=== PATIENT | female | born 1995 | race Caucasian/White ===

== ENCOUNTER 2022-07-22 10:59 | Emergency (ER) | payer OTHER ==
[~2022-07-22] VITALS: Ht 162.6 cm; Wt 59.1 kg
[2022-07-22 12:47] LABS: BASO # 0.1 10^3/uL (0.0-0.2); BASO % 0.8 % (0.0-1.0); EOS # 0.1 10^3/uL (0.0-0.5); HEMATOCRIT 41.4 % (36.0-47.0); HEMOGLOBIN 14.3 g/dl (12.0-15.5); LYMPH # 2.1 10^3/uL (1.5-5.0); LYMPH % 34.5 % (24.0-44.0); MEAN CORPUSCULAR HEMOGLOBIN 31.1 pg (27.0-33.0); MEAN CORPUSCULAR HGB CONC 34.5 g/dl (32.0-36.5); MONO # 0.6 10^3/uL (0.0-0.8); MONO % 9.6 % (2.0-8.0); NEUTROPHILS # 3.2 10^3/uL (1.5-8.5); NEUTROPHILS % 52.4 % (36.0-66.0); PLATELET COUNT, AUTOMATED 228 10^3/uL (150-450); WHITE BLOOD COUNT 6.1 10^3/uL (4.0-10.0)
[2022-07-22 13:17] LABS: LIPASE 32 U/L (12-53)
[2022-07-22 13:24] LABS: HCG, SERUM QUALITATIVE NEGATIVE (NEGATIVE)
[2022-07-22 14:03] LABS: ALKALINE PHOSPHATASE 91 U/L (46-116); ALT/SGPT 16 U/L (7.0-40); AST/SGOT 13 U/L (<34); BILIRUBIN,DIRECT 0.2 MG/DL (<0.4); BILIRUBIN,TOTAL 0.8 MG/DL (0.3-1.2); BLOOD UREA NITROGEN 15 MG/DL (9-23); CALCIUM LEVEL 9.3 MG/DL (8.5-10.1); CARBON DIOXIDE LEVEL 30 MMOL/L (20-31); CHLORIDE LEVEL 105 MMOL/L (98-107); CREATININE FOR GFR 0.85 MG/DL (0.55-1.30); GLOMERULAR FILTRATION RATE > 60.0 (>60); GLUCOSE, FASTING 80 MG/DL (60-100); POTASSIUM SERUM 4.2 MMOL/L (3.5-5.1); SODIUM LEVEL 139 MMOL/L (136-145)
[2022-07-22] MEDS ORDERED: NS 1,000 ML IV ONE (14:25)
[2022-07-22 15:19] LABS: CK-MB VALUE MASS < 1.0 NG/ML (<3.6); CPK CREATINE PHOSPHOKINASE 92 U/L (34-145); MB/CK RELATIVE INDEX 1.08 (< OR =4)
[2022-07-22 15:35] LABS: CK-MB VALUE MASS < 1.0 NG/ML (<3.6)
[2022-07-22 15:40] LABS: FREE T4 0.93 NG/DL (0.89-1.76)
[2022-07-22 15:42] LABS: CPK CREATINE PHOSPHOKINASE 66 U/L (34-145); MB/CK RELATIVE INDEX 1.51 (< OR =4)
[2022-07-22 17:28] VITALS: BP 115/80
== END 2022-07-22 17:35 | disposition home or self-care (01) ==
LOC: EDBD 10:59 → M ED 10:59
DX: R53.83 Other fatigue (principal); I44.4 Left anterior fascicular block; F41.9 Anxiety disorder, unspecified; F43.10 Post-traumatic stress disorder, unspecified; H81.4 Vertigo of central origin; K58.9 Irritable bowel syndrome, unspecified

== ENCOUNTER 2022-08-14 15:22 | Emergency (ER) | payer OTHER ==
[~2022-08-14] VITALS: Ht 162.6 cm; Wt 59.1 kg
[2022-08-14 16:01] LABS: BASO % 0.5 % (0.0-1.0); EOS # 0.1 10^3/uL (0.0-0.5); EOS % 2.1 % (0.0-3.0); HEMATOCRIT 36.6 % (36.0-47.0); HEMOGLOBIN 12.7 g/dl (12.0-15.5); LYMPH # 1.8 10^3/uL (1.5-5.0); LYMPH % 31.8 % (24.0-44.0); MEAN CORPUSCULAR HGB CONC 34.7 g/dl (32.0-36.5); MEAN CORPUSCULAR VOLUME 89.3 fl (80.0-96.0); MONO # 0.5 10^3/uL (0.0-0.8); NEUTROPHILS # 3.3 10^3/uL (1.5-8.5); NEUTROPHILS % 57.3 % (36.0-66.0); PLATELET COUNT, AUTOMATED 190 10^3/uL (150-450); WHITE BLOOD COUNT 5.8 10^3/uL (4.0-10.0)
[2022-08-14 16:28] LABS: CK-MB VALUE MASS 1.3 NG/ML (<3.6)
[2022-08-14 16:33] LABS: BLOOD UREA NITROGEN 18 MG/DL (9-23); CALCIUM LEVEL 8.8 MG/DL (8.5-10.1); CARBON DIOXIDE LEVEL 29 MMOL/L (20-31); CHLORIDE LEVEL 107 MMOL/L (98-107); CPK CREATINE PHOSPHOKINASE 351 U/L (34-145); GLUCOSE, FASTING 108 MG/DL (60-100); MB/CK RELATIVE INDEX 0.37 (< OR =4); POTASSIUM SERUM 3.9 MMOL/L (3.5-5.1); SODIUM LEVEL 138 MMOL/L (136-145)
[2022-08-14 16:43] LABS: CREATININE FOR GFR 0.81 MG/DL (0.55-1.30); GLOMERULAR FILTRATION RATE > 60.0 (>60)
[2022-08-14 16:51] LABS: HCG, SERUM QUALITATIVE NEGATIVE (NEGATIVE)
[2022-08-14] MEDS ORDERED: HOLTER MONITOR XX (17:06)
[2022-08-14] MEDS ORDERED: hydrOXYzine 50 MG TAB PO ONE (18:55)
[2022-08-14 19:01] VITALS: BP 114/62
== END 2022-08-14 19:06 | disposition home or self-care (01) ==
LOC: M ED 15:22
DX: R55 Syncope and collapse (principal); F41.9 Anxiety disorder, unspecified; R00.1 Bradycardia, unspecified; I45.19 Other right bundle-branch block

== ENCOUNTER → 2022-09-02 | Outpatient (CLI) | payer OTHER ==
[~2022-09-02] MED LIST: HOLTER MONITOR XX
[2022-09-02 13:36] LABS: CPK CREATINE PHOSPHOKINASE 66 U/L (34-145)
[2022-09-02 13:38] LABS: FOLATE > 24.0 NG/ML (>5.4); RHEUMATOID FACTOR QUANT < 3.5 IU/ML (<14); VITAMIN B12 LEVEL 498 PG/ML (211-911)
[2022-09-02 13:39] LABS: THYROID STIMULATING HORMONE 0.874 uIU/ML (0.55-4.78); TOTAL 25(OH) VITAMIN D 50.9 NG/ML (20.0-100.0)
== END ==
LOC: M LAB 12:02
PROVIDERS: ATTEND Psychiatry & Neurology Neurology
DX: R20.2 Paresthesia of skin (principal); R53.1 Weakness

== ENCOUNTER 2022-09-09 15:58 | Emergency (ER) | payer OTHER ==
[~2022-09-09] VITALS: Ht 162.6 cm; Wt 58.2 kg
[2022-09-09 16:54] VITALS: BP 130/72
== END 2022-09-09 17:03 | disposition home or self-care (01) ==
LOC: M ED 15:58 → EDBD 15:58 → M ED 17:03
DX: R55 Syncope and collapse (principal); F43.10 Post-traumatic stress disorder, unspecified; F41.9 Anxiety disorder, unspecified

== ENCOUNTER 2022-10-02 07:28 | Emergency (ER) | payer OTHER ==
[~2022-10-02] VITALS: Ht 162.6 cm; Wt 58.2 kg
== END 2022-10-02 08:00 | disposition home or self-care (01) ==
LOC: EDBD 07:28 → M ED 07:28
DX: F44.5 Conversion disorder with seizures or convulsions (principal); F43.10 Post-traumatic stress disorder, unspecified; F41.9 Anxiety disorder, unspecified; K58.9 Irritable bowel syndrome, unspecified

== ENCOUNTER 2022-12-03 12:40 | Emergency (ER) | payer OTHER ==
[~2022-12-03] VITALS: Ht 162.6 cm; Wt 56.4 kg
[2022-12-03 12:40] VITALS: BP 107/54; TEMP 98.3; O2SAT 100
== END 2022-12-03 14:13 | disposition home or self-care (01) ==
LOC: M ED 12:40
DX: F44.6 Conversion disorder with sensory symptom or deficit (principal); F43.10 Post-traumatic stress disorder, unspecified; F41.9 Anxiety disorder, unspecified; H81.4 Vertigo of central origin